=== PATIENT | male | born 2000 | race Hispanic/Latino ===

== ENCOUNTER 2020-07-03 13:26 | Inpatient (IN) | payer SELFPAY ==
[~2020-07-03] VITALS: Ht 182.9 cm; Wt 104.3 kg
--- NOTE | 2020-07-03 13:58 | Emergency Department Note ---
History of Present Illnes History of Present Illness Chief Complaint: Abdominal Complaints History of Present Illness This is a 20 year old male, with no significant past medical history, who presents for evaluation of right lower quadrant abdominal pain that started last night. Patient states that he went to bed last night with the RLQ abdominal pain, and he awakened with it again this morning. He describes the pain as sharp, stabbing, and does not radiate. The pain is worse with movement, including deep breathing. He is nauseated and vomited once last night, but he has had no vomiting today. Patient has not had anything to eat or drink today. Patient states that he had a "normal" bowel movement last night, and he has had no diarrhea. Patient states that he "felt warm," once last night, as if he had a fever, but he did not check his temperature. No known sick contacts or known exposure to Covid 19. Historian: Patient Arrival Mode: Car Maintenance Shop Clerk Required: No (18) Onset (how long ago): hour(s) (18) Location: RLQ Quality: sharp, stabbing Radiation: Reports non-radiation; Denies back, Denies neck, Denies flank Severity: moderate Duration (how long): hour(s) Timing of current episode: intermittent Progression: worsening Chronicity: new Context: Denies recent illness, Denies recent surgery, Denies trauma/injury Relieving factors: rest (sitting perfectly still helps to minimize the pain.) Exacerbating factors: movement Associated symptoms: Reports fever/chills (subjective), Reports nausea/vomiting (nausea, without vomiting;), Reports shortness of breath; Denies chest pain, Denies cough Treatments prior to arrival: none Past Medical/Family History Physician Review I have reviewed the patient's past medical and family history. Any updates have been documented here. Past Medical History Recent Fever: No Clinical Suspicion of Infectio: No New/Unexplained Change in Ment: No Past Medical History: None Other Surgery: right arm cyst Social History Smoking Cessation: Never Smoker Alcohol Use: None Any Illegal Drug Use: No TB Exposure/Symptoms: No Physically hurt or threatened: No Family History Family history of heart diseas: No Other Any Pre-Existing Lines (PICC,: No Is patient up to date on immun: No Review of Systems Review of Systems Constitutional: Reports chills, Reports fever (subjective;) EENTM: Reports no symptoms Cardiovascular: Denies chest pain, Denies palpitations Respiratory: Denies cough, Denies dyspnea Gastrointestinal: Reports abdominal pain, Reports nausea, Reports vomiting (x1 episode last evening; ); Denies constipation, Denies diarrhea Genitourinary: Reports no symptoms; Denies dysuria, Denies frequency Musculoskeletal: Denies back pain, Denies neck pain Integumentary: Denies change in color, Denies rash Neurological: Denies headache, Denies paresthesia Psychological: Reports no symptoms Endocrine: Reports no symptoms Hematological/Lymphatic: Reports no symptoms Review of other systems: All other systems negative Physical Exam Related Data Allergies: Coded Allergies: No Known Allergies (Unverified , 07/03/20) Vital signs reviewed: Yes Physical Exam CONSTITUTIONAL Constitutional: Present well-developed, Present well-nourished; Absent obese, Absent distressed, Absent ill appearing HENT HENT: Present normocephalic, Present atraumatic, Present oropharynx clear/moist, Present nose normal HENT L/R: Present left TM normal, Present right TM normal, Present left ext ear normal, Present right ext ear normal EYES Eyes: Reports PERRL, Reports conjunctivae normal NECK Neck: Present ROM normal; Absent cervical adenopathy PULMONARY Pulmonary: Present effort normal, Present breath sounds normal; Absent chest tenderness CARDIOVASCULAR Cardiovascular: Present regular rhythm, Present heart sounds normal, Present capillary refill normal, Present normal rate; Absent murmur GASTROINTESTINAL Abdominal: Present soft, Present tender (RLQ ttp, with mild guarding, no rebound; ), Present guarding; Absent distension, Absent rebound GENITOURINARY Genitourinary: Present exam deferred SKIN Skin: Present warm; Absent rash MUSCULOSKELETAL Musculoskeletal: Present ROM normal; Absent edema NEUROLOGICAL Neurological: Present alert, Present oriented x 3, Present no gross motor or sensory deficits PSYCHOLOGICAL Psychological: Present mood/affect normal, Present judgement normal Results Laboratory Laboratory CBC - WBC = 13.8, otherwise, normal; [place] -normal; Liver panel - nl, except for ALT = 108, TP = 8.2; UA - small blood, otherwise normal; Lab results reviewed: Yes Imaging Imaging results reviewed: Yes Impressions [place] [address] Patient Name: GUI MEJIA MR #: [id number] : 2000 Age/[facility]: 20[id number] Req #: [id number] Adm Physician: Ordered by: MICHAEL WALKER MD Report #: [id number] [facility]: [facility] Room/Bed: Procedure: [id number] HOPD/CT ABD/PEL WITH CONTRAST-HOPD Exam Date: Exam Time: REPORT STATUS: Signed EXAM: CT Abdomen WITHOUT contrast INDICATION: Right lower quadrant abdominal pain. COMPARISON: None. TECHNIQUE: Abdomen was scanned utilizing a multidetector helical scanner from the lung base to the iliac crest without administration of IV contrast. Absence of intravenous contrast decreases sensitivity for detection of focal lesions and vascular pathology. Coronal and sagittal reformations were obtained. Routine protocol was performed. IV CONTRAST: None ORAL CONTRAST: Water COMPLICATIONS: None RADIATION DOSE: Total DLP: 905 mGy*cm Estimated effective dose: (DLP x 0.015 x size factor) mSv CTDIvol has been reviewed. It is below the limits set by the Radiation Protocol Committee (RPC). Dose modulation, iterative reconstruction, and/or weight based adjustment of the mA/kV was utilized to reduce the radiation dose to as low as reasonably achievable. FINDINGS: LINES and TUBES: None. LOWER THORAX: Unremarkable HEPATOBILIARY: The liver is diffuse hypodense compared to the spleen, consistent with diffuse hepatic diffuse hepatic steatosis. No focal hepatic lesions. No biliary ductal dilation. GALLBLADDER: No radio-opaque stones or sludge. No wall thickening. SPLEEN: No splenomegaly. PANCREAS: No focal masses or ductal dilatation. ADRENALS: No adrenal nodules KIDNEYS/URETERS: No hydronephrosis. No cystic or solid mass lesions. No stones. GI TRACT: No abnormal distention, wall thickening, or evidence of bowel obstruction. The appendix is dilated measuring approximately 1.2 cm with mild peripheral fat stranding LYMPH NODES: No lymphadenopathy. VESSELS: Unremarkable. PERITONEUM / RETROPERITONEUM: No free air or fluid. BONES: Unremarkable. SOFT TISSUES: Unremarkable. IMPRESSION: 1. Dilated appendix measuring approximately 1.2 cm with mild peripheral fat stranding, findings compatible with acute uncomplicated appendicitis. 2. Hepatic steatosis. Signed by: Chloe Cuellar MD on 07/03/2020 3:57 PM Dictated By: CHLOE CUELLAR MD 56 Transcribed By: INES on 07/03/201556 COPY TO: MICHAEL WALKER MD~ Assessment & Plan Medical Decision Making [facility] 16:10 - CT results back, and revealed findings consistent with acute appendicitis. Informed the patient and mom of the findings, and that he will need to be admitted to the hospital for surgical management of the appendicitis. We'll consult surgery for admission. - Patient states that he is currently comfortable, pain-free, and without nausea. 16:30- case discussed with Dr. Antonio, surgery vocational rehabilitation specialist, who agreed to admit patient to [facility]. He requested that patient be placed on IV abx, and to make him NPO after midnight. He plans to take him to the OR in the morning. COVID testing has been ordered. Pt and mother, updated. Assessment & Plan Final Impression: (1) RLQ abdominal pain (2) Acute appendicitis (3) Leukocytosis (4) Nausea Depart Disposition: ADMITTED MICHAEL WALKER MD Jul 03, 2020 13:58
--- OUTSIDE RECORDS SUMMARY | 2020-07-03 15:08 | XMS REPORT | Clinical Summary ---
Author Author [facility] Address Unknown Phone Unavailable Care Team Providers Care Interceptor Operator Name Role Phone Luis Holcomb PCP Allergies No Known Allergies Medications No known medications Active Problems Not on file Social History Date Tobacco Use Types Packs/Day Years Used Never Smoker Smokeless Tobacco: Never Used Drinks/Week oz/Week Comments Alcohol Use No Sex Assigned at Date Recorded Not on file Last Filed Vital Signs Not on file Plan of Treatment Not on file Results Not on fileafter 07/03/2019 Insurance Type Payer Benefit Subscriber ID Effective Phone Address Plan / Dates Group Medicaid Contracted MEDICAID - MEDICAID [place] MEDICAID [id number] 18-P CARE [facility] [place] (Home) [place] [address]
--- OUTSIDE RECORDS SUMMARY | 2020-07-03 15:08 | XMS REPORT | Continuity of Care Document ---
Author Author [facility] t Organization [facility] Address [address] [place] [address] Phone Unavailable Care Team Providers Care Asset Availability Leader Name Role Phone ZhangLuis stephen PCP Israel SPARKS Attheidi Unavailable Israel SPARKS Admheidi Unavailable Problems This patient has no known problems. Allergies, Adverse Reactions, Alerts This patient has no known allergies or adverse reactions. Social History Social Habit Start Date Stop Date Quantity Comments Source Sex Assigned At [facility] Tobacco use and exposure 2018-01-27 00:00:00 2018-01-27 00:00:00 Neve r used [facility] Alcohol intake 2018-01-27 00:00:00 2018-01-27 00:00:00 Current non-drinker of alcohol (finding) [facility] Smoking Status Start Date Stop Date Source Never smoker [facility] Medications This patient has no known medications. Procedures This patient has no known procedures. Results Test Description Test Time Test Comments Results Result Comments Source TISSUE EXAM 2018-01-29 09:04:00 Surgical Pat hology Report Case: [id number] Authorizing Provider: Aris Sparks MD Collected: 01/27/2018 0858 Ord ering Location: [facility] PERI[facility]AT[facility] Received: 01/27/2018 1131 SERVICES Pathologist: Cally Torres MD Specimen: Ganglion Cyst, RIGHT WRIST SOFT TISSUE, RIGHT WRIST, EXCISION- COMPATIBLE WITH GANGLION CYST Signing Pathologist Direct Phone Line: [phone] signed by Cally Torres MD on 01/29/2018 at 9:04 AMThe sections show fibrovascular and adipose tissue. A cyst wall without lining is also appreciated. The cyst that shows bluish watery material. Findings are compatible with ganglion cyst.[id number] wrist ganglion cystRight wrist ganglion cystReceived in formalin labeled "ganglion cyst", description "right wrist" is a 2.0 x 1.1 x 0.6 cm, andrade-white, irregular, rubbery soft tissue mass. Sectioning reveals a multiloculated cyst containing clear gelatinous material. The specimen is entirely submitted in cassette A1. DB/ewPerformed.
--- NOTE | 2020-07-03 16:01 | Diagnostic Imaging Report ---
EXAM: CT Abdomen WITHOUT contrast INDICATION: Right lower quadrant abdominal pain. COMPARISON: None. TECHNIQUE: Abdomen was scanned utilizing a multidetector helical scanner from the lung base to the iliac crest without administration of IV contrast. Absence of intravenous contrast decreases sensitivity for detection of focal lesions and vascular pathology. Coronal and sagittal reformations were obtained. Routine protocol was performed. IV CONTRAST: None ORAL CONTRAST: Water COMPLICATIONS: None RADIATION DOSE: Total DLP: 905 mGy*cm Estimated effective dose: (DLP x 0.015 x size factor) mSv CTDIvol has been reviewed. It is below the limits set by the Radiation Protocol Committee (RPC). Dose modulation, iterative reconstruction, and/or weight based adjustment of the mA/kV was utilized to reduce the radiation dose to as low as reasonably achievable. FINDINGS: LINES and TUBES: None. LOWER THORAX: Unremarkable HEPATOBILIARY: The liver is diffuse hypodense compared to the spleen, consistent with diffuse hepatic diffuse hepatic steatosis. No focal hepatic lesions. No biliary ductal dilation. GALLBLADDER: No radio-opaque stones or sludge. No wall thickening. SPLEEN: No splenomegaly. PANCREAS: No focal masses or ductal dilatation. ADRENALS: No adrenal nodules KIDNEYS/URETERS: No hydronephrosis. No cystic or solid mass lesions. No stones. GI TRACT: No abnormal distention, wall thickening, or evidence of bowel obstruction. The appendix is dilated measuring approximately 1.2 cm with mild peripheral fat stranding LYMPH NODES: No lymphadenopathy. VESSELS: Unremarkable. PERITONEUM / RETROPERITONEUM: No free air or fluid. BONES: Unremarkable. SOFT TISSUES: Unremarkable. IMPRESSION: 1. Dilated appendix measuring approximately 1.2 cm with mild peripheral fat stranding, findings compatible with acute uncomplicated appendicitis. 2. Hepatic steatosis. Signed by: Julienne Mclean MD on 07/03/2020 3:57 PM
--- NOTE | 2020-07-03 16:34 | NUR ---
[facility] called for transport
[2020-07-03] MEDS ORDERED: ONDANSETRON HCL INJ 2MG/ML 2ML 2 MG/ML VIAL IV PRN (16:45)
[2020-07-03] MEDS ORDERED: MORPHINE SULFATE 2 MG/ML SYR 1ML IV PRN (16:45)
--- OUTSIDE RECORDS SUMMARY | 2020-07-03 16:51 | XMS REPORT | Continuity of Care Document ---
Author Author [facility] t Organization [facility] Address [address] [place] [address] Phone Unavailable Care Team Providers Care Slot Operations Manager Name Role Phone ZhangFuad stephenael PCP Arminda WALKER Unavailable Israel SPARKS Attphysarika Unavailable Israel SPARKS Admheidi Unavailable Problems This patient has no known problems. Allergies, Adverse Reactions, Alerts This patient has no known allergies or adverse reactions. Social History Social Habit Start Date Stop Date Quantity Comments Source Sex Assigned At [facility] Tobacco use and exposure 2018-01-27 00:00:00 2018-01-27 00:00:00 Neve r used [facility] Alcohol intake 2018-01-27 00:00:00 2018-01-27 00:00:00 Current non-drinker of alcohol (finding) [facility] Smoking Status Start Date Stop Date Source Never smoker [facility] Medications This patient has no known medications. Procedures This patient has no known procedures. Results Test Description Test Time Test Comments Results Result Comments Source CT ABD/PEL WITH CONTRAST-HOPD 2020-07-03 15:53:00 [facility] [address] [place] [address] Patient Name: GUI NEVES MR #: [id number] : 2000 Age/Sex: 20/M Req #: [id number] Adm Physician: Ordered by: MICHAEL WALKER MD Report #: [id number] Location: [facility] Room/Bed: Procedure: [id number] HOPD/CT ABD/PEL WITH CONTRAST-HOPD Exam Date: Exam Time: REPORT STATUS: Signed EXAM: CT Abdomen WITHOUT contrast INDICATION: Right lower quadrant abdominal pain. COMPARISON: None. TECHNIQUE: Abdomen was scanned utilizing a multidetector helical scanner from the lung base to the iliac crest without administration of IV contrast. Absence of intravenous contrast decreases sensitivity for detection of focal lesions and vascular pathology. Coronal and sagittal reformations were obtained. Routine protocol was performed. IV CONTRAST: None ORAL CONTRAST: Water COMPLICATIONS: None RADIATION DOSE: Total DLP: 905 mGy*cm Estimated effective dose: (DLP x 0.015 x size factor) mSv CTDIvol has been reviewed. It is below the limits set by the Radiation Protocol Committee (RPC). Dose modulation, iterative reconstruction, and/or weight based adjustment of the mA/kV was utilized to reduce the radiation dose to as low as reasonably achievable. FINDINGS: LINES and TUBES: None. LOWER THORAX: Unremarkable HEPATOBILIARY: The liver is diffuse hypodense compared to the spleen, consistent with diffuse hepatic diffuse hepatic steatosis. No focal hepatic lesions. No biliary ductal dilation. GALLBLADDER: No radio-opaque stones or sludge. No wall thicken ing. SPLEEN: No splenomegaly. PANCREAS: No focal masses or ductal dilatation. ADRENALS: No adrenal nodules KIDNEYS/URETERS: No hydronephrosis. No cystic or solid mass lesions. No stones. GI TRACT: No abnormal distention, wall thickening, or evidence of bowel obstruction. The appendix is dilated measuring approximately 1.2 cm with mild peripheral fat stranding LYMPH NODES: No lymphadenopathy. VESSELS: Unremarkable. PERITONEUM / RETROPERITONEUM: No free air or fluid. BONES: Unremarkable. SOFT TISSUES: Unremarkable. IMPRESSION: 1. Dilated appendix measuring approximately 1.2 cm with mild peripheral fat stranding, findings compatible with acute uncomplicated appendicitis. 2. Hepatic steatosis. Signed by: Chloe Cuellar MD on 07/03/2020 3:57 PM Dictated By: CHLOE CUELLAR MD 56 Transcribed By: INES on 07/03/201556 COPY TO: MICHAEL WALKER MD TISSUE EXAM 2018-01-29 09:04:00 Surgical Pat hology Report Case: [id number] Authorizing Provider: Aris Sparks MD Collected: 01/27/2018 0858 Ord ering Location: [facility] PERIOPERATIVE Received: 01/27/2018 1131 SERVICES Pathologist: Cally Torres MD Specimen: Ganglion Cyst, RIGHT WRIST SOFT TISSUE, RIGHT WRIST, EXCISION- COMPATIBLE WITH GANGLION CYST Signing Pathologist Direct Phone Line: [phone] signed by Cally Torres MD on 01/29/2018 at 9:04 AMThe sections show fibrovascular and adipose tissue. A cyst wall without lining is also appreciated. The cyst that shows bluish watery material. Findings are compatible with ganglion cyst.[id number] wrist ganglion cystRight wrist ganglion cystReceived in formalin labeled "ganglion cyst", description "right wrist" is a 2.0 x 1.1 x 0.6 cm, andrade-white, irregular, rubbery soft tissue mass. Sectioning reveals a multiloculated cyst containing clear gelatinous material. The specimen is entirely submitted in cassette A1. DB/ewPerformed.
--- OUTSIDE RECORDS SUMMARY | 2020-07-03 16:51 | XMS REPORT | Clinical Summary ---
Author Author [facility] Address Unknown Phone Unavailable Care Team Providers Care Product Design Specialist Name Role Phone Luis Holcomb PCP Allergies [...] Medicaid Contracted MEDICAID - MEDICAID [place] MEDICAID [id number] 19 18-P CARE [facility] [address] (Home) [place] [address]
--- NOTE | 2020-07-03 17:02 | NUR ---
REPORT TO EMS.
--- NOTE | 2020-07-03 17:20 | NUR ---
PT ARRIVED TO ROOM 213. PT AWAKE, ALERT, ORIENTED, AMBULATORY, NO S/S OF DISTRESS. NO COMPLAINTS AT THIS TIME.
[2020-07-03 17:37] VITALS: BP 143/78
[2020-07-03 18:18] VITALS: BP 143/78
[2020-07-03 18:22] VITALS: BP 143/78
[2020-07-03] MEDS: SODIUM CHLORIDE 0.9% 1000ML 1,000 ML IV SCH (18:35)
[2020-07-03 20:00] VITALS: BP 142/78
[2020-07-03 21:00] VITALS: BP 142/78
[2020-07-03] MEDS ORDERED: PIPER-TAZ 3.375 GM / NS 50ML IV SCH (22:00)
[2020-07-03] MEDS: PIPER-TAZ 3.375 GM 50 ML IV SCH (22:05)
[2020-07-04] VITALS (9 sets, daily range): BP systolic 120–149; BP diastolic 56–86
--- NOTE | 2020-07-04 | NUR ---
All drinks and food removed from bedside, education provided to remain nothing by mouth for possible procedure 07/04/20. Verbalized understanding.
[2020-07-04] MEDS: SODIUM CHLORIDE 0.9% 1000ML 1,000 ML IV SCH ×4 (00:49→22:33)
[2020-07-04] MEDS: PIPER-TAZ 3.375 GM 50 ML IV SCH ×3 (05:13→21:43)
--- NOTE | 2020-07-04 06:20 | NUR ---
CHG shower taken, linen changed. Tolerated well.
--- NOTE | 2020-07-04 06:49 | NUR ---
Bedside report and walking rounds completed with oncoming nurse. Patient in bed with call light within reach. No issues or concerns noted.
--- NOTE | 2020-07-04 06:50 | NUR ---
SBAR BEDSIDE REPORT RECEIVED FROM PM SHIFT RN. PATIENT FOUND LYING IN BED IN NO ACUTE DISTRESS. PATIENT AAOX4 AND ABLE TO VOICE NEEDS. PT DENIES ANY FURTHER NEEDS. PATIENT WAS EDUCATED ON FALL RISK PRECAUTIONS AND VERBALIZED UNDERSTANDING. CALL LIGHT AND BELONGINGS PLACED NEARBY. WILL CONTINUE TO MONITOR.
--- NOTE | 2020-07-04 07:23 | Pre Op History & Physical ---
CHIEF COMPLAINT: Abdominal pain. HISTORY OF PRESENT ILLNESS: The patient is a 20-year-old male, who presents with complaints of abdominal pain, started two nights ago. He has associated nausea and vomiting. The pain persisted. He went to emergency room where he was evaluated CT of the abdomen and pelvis, which revealed findings suggestive of acute appendicitis. The patient has not had similar symptoms in the past. He has not had any fever. PAST MEDICAL HISTORY: Unremarkable. Denies chronic medical problems. PAST SURGICAL HISTORY: Only previous surgery is incision of a cyst from his wrist. ALLERGIES: THERE ARE NO KNOWN ALLERGIES. There were no current medications. FAMILY HISTORY: Noncontributory. SOCIAL HISTORY: The patient does not smoke cigarettes or drink alcohol. REVIEW OF SYSTEMS: As stated above, otherwise was negative. PHYSICAL EXAMINATION: GENERAL: The patient is awake and alert, in no distress. VITAL SIGNS: Normal. He is afebrile. HEENT: Sclerae is nonicteric. NECK: Supple. No masses. LUNGS: Equal breath sounds are clear bilaterally. CARDIAC: Regular rate and rhythm with no murmur. ABDOMEN: Tender in the right lower quadrant and signs of peritonitis localized to right lower quadrant. There is no mass. There was no organomegaly. EXTREMITIES: Warm. There is no edema. NEUROLOGIC: Grossly intact. LABORATORY TESTS: Unremarkable. ASSESSMENT AND PLAN: A 20-year-old male with acute appendicitis. He will benefit from appendectomy, which I planned to schedule for today. Procedure was explained to the patient including risks, benefits, and alternatives. He understands. He has had the opportunity to ask questions. He is aware of the possible need for open surgery. MD FAHAD Mota/JOSE DE JESUS /[id number]
[2020-07-04 11:18] LABS: BASOPHILS # (AUTO) 0.1 (0.0-0.1); BASOPHILS % 0.6 % (0.0-1.0); EOSINOPHILS # (AUTO) 0.2 (0.0-0.4); EOSINOPHILS % 2.4 % (0.0-6.0); HEMATOCRIT 41.4 % (38.2-49.6); HEMOGLOBIN 13.5 g/dL (14.0-18.0); LYMPHOCYTES # (AUTO) 2.9 (1.0-3.2); LYMPHOCYTES % 37.5 % (18.0-39.1); MEAN CORPUSCULAR HEMOGLOBIN 27.3 pg (28-32); MEAN CORPUSCULAR HGB CONC 32.6 g/dL (31-35); MEAN CORPUSCULAR VOLUME 83.6 fL (81-99); MONOCYTES # (AUTO) 0.7 (0.2-0.8); MONOCYTES % 9.1 % (4.4-11.3); NEUTROPHILS # (AUTO) 3.9 (2.1-6.9); NEUTROPHILS % 49.9 % (38.7-80.0); PLATELET COUNT 246 x10e3/uL (140-360); RED BLOOD COUNT 4.95 x10e6/uL (4.3-5.7); RED CELL DISTRIBUTION WIDTH 13.3 % (11.7-14.4)
[2020-07-04 11:37] LABS: ALANINE AMINOTRANSFERASE 105 IU/L (0-55); ALBUMIN 3.9 g/dL (3.5-5.0); ALBUMIN/GLOBULIN RATIO 1.2 (0.8-2.0); ALKALINE PHOSPHATASE 67 IU/L (40-150); BLOOD UREA NITROGEN 10 mg/dL (7-26); BUN/CREATININE RATIO 11 (6-25); CALCIUM 8.7 mg/dL (8.4-10.2); CARBON DIOXIDE 25 mmol/L (22-29); CHLORIDE 107 mmol/L (98-107); EST GLOMERULAR FILTRATION RATE > 60 ML/MIN (60-); GLUCOSE 98 mg/dL (74-118); SODIUM 142 mmol/L (136-145)
[2020-07-04] MEDS ORDERED: BUPIVACAINE HCL 0.5% INJ 30 ML VIAL INJ ONE (11:44)
[2020-07-04] MEDS ORDERED: ONDANSETRON HCL INJ 2MG/ML 2ML 2 MG/ML VIAL ONE (12:09)
[2020-07-04] MEDS ORDERED: ROCURONIUM BROMIDE 10 MG/ML 5ML VIAL IV ONE (12:09)
[2020-07-04] MEDS ORDERED: DEXAMETHASONE SOD PHOS INJ 4 MG/ML VIAL ONE (12:09)
[2020-07-04] MEDS ORDERED: SEVOFLURANE INHAL SOLN 250 ML PEN BTL ONE (12:09)
[2020-07-04] MEDS ORDERED: KETOROLAC TROMETHAMINE 30 MG/ML VIAL ONE (12:09)
[2020-07-04] MEDS ORDERED: PROPOFOL IV EMULSION 10 MG/ML 20 ML VIAL ONE (12:09)
[2020-07-04] MEDS ORDERED: LIDOCAINE HCL 2% LOCAL INJ 5 ML SDV VIAL INJ ONE (12:09)
[2020-07-04] MEDS ORDERED: NEOSTIGMINE 1 MG/ML 10ML VIAL ONE (12:09)
[2020-07-04] MEDS ORDERED: GLYCOPYRROLATE INJ 0.2 MG/ML VIAL ONE (12:09)
[2020-07-04] MEDS ORDERED: ACETAMINOPHEN 325 MG TAB PO PRN (12:30)
[2020-07-04] MEDS ORDERED: ONDANSETRON HCL INJ 2MG/ML 2ML 2 MG/ML VIAL IV PRN (12:30)
--- NOTE | 2020-07-04 12:30 | NUR ---
PATIENT OFF THE FLOOR FOR SURGERY
--- NOTE | 2020-07-04 13:30 | NUR ---
PATIENT BACK TO THE FLOOR FROM SURGERY
--- NOTE | 2020-07-04 13:39 | Operative Report ---
DATE OF PROCEDURE: 07/04/2020 SURGEON: Aris Antonio MD PREOPERATIVE DIAGNOSIS: Acute appendicitis. POSTOPERATIVE DIAGNOSIS: Acute appendicitis. PROCEDURES: Diagnostic laparoscopy, laparoscopic appendectomy. BALLOON ARTIST: None. ANESTHESIA: General endotracheal. INDICATIONS AND FINDINGS: The patient is a 20-year-old male who presented with complaints of abdominal pain localized in the right lower quadrant. At surgery, the patient was found to have acutely inflamed appendix. TECHNIQUE: After adequate general endotracheal anesthesia, the patient in supine position, the abdomen was prepped and draped in a sterile fashion with ChloraPrep solution. Skin in the umbilicus was infiltrated with 0.5% Marcaine. Incision was made in the umbilicus. Abdominal wall was elevated and Veress needle was introduced. Pneumoperitoneum was then created. A 10 mm trocar and cannula were then passed through the umbilical wound. Laparoscopic camera was introduced. Initial laparoscopy revealed acutely inflamed appendix. A 12 mm trocar and cannulas were placed suprapubically and a 5 mm trocar and cannula were placed in the right upper quadrant. These were placed under direct vision. The cecum was elevated. There were some peritoneal attachments in the appendix which were divided with LigaSure device. The mesoappendix was also divided with LigaSure device until the appendix was free all the way down to its base at the cecum. The base of the appendix was then divided close to the cecum with an Endo-SHAYLEE stapler freeing the appendix completely. Appendix was then placed into an Endopouch and brought out through the suprapubic cannula. Care was taken to not touch the abdominal wall. The appendectomy was inspected for hemostasis which was seen to be adequate. It was irrigated with saline. All fluid aspirated and inspected for hemostasis which was seen to be adequate. Instruments and cannulas were then removed. Pneumoperitoneum was evacuated. Wounds were then closed. Fascia in the umbilical and suprapubic wound closed with 0 Vicryl. Skin to all wounds closed with isadora. Sterile dressings applied to each wound. The patient tolerated the procedure well. Estimated blood loss was 5 mL. There were no complications. All counts were correct and the patient was taken to the recovery room in satisfactory condition. MD FAHAD Mota/MODL /[id number]
[2020-07-04] MEDS ORDERED: FENTANYL CITRATE/PF 100MCG/2 ML INJ ONE (15:03)
[2020-07-04] MEDS ORDERED: MIDAZOLAM HCL 2 MG/2 ML VIAL ONE (15:03)
[2020-07-04] MEDS: HYDROCODONE/APAP 5MG-325MG TAB PO PRN (18:22)
[2020-07-05] VITALS: BP 129/64
[2020-07-05] MEDS: HYDROCODONE/APAP 5MG-325MG TAB PO PRN ×2 (00:23→05:15)
[2020-07-05 04:00] VITALS: BP 139/66
[2020-07-05] MEDS: PIPER-TAZ 3.375 GM 50 ML IV SCH (05:15)
[2020-07-05] MEDS: SODIUM CHLORIDE 0.9% 1000ML 1,000 ML IV SCH (07:56)
[2020-07-05 08:48] VITALS: BP 117/61
[2020-07-05 08:55] VITALS: BP 117/61
--- NOTE | 2020-07-05 10:28 | NUR ---
Patient received discharge order from Dr. Antonio. Patient was given discharge instructions including follow up, education, and prescription. Patient verbalized understanding. Patient IV removed at 1000 and covered with a C/D/I dressing. Patient had no other questions or complaints. Patient refused wheelchair. Patient walked to car at 1020.
== END 2020-07-05 10:20 | disposition home or self-care (01) | DRG 343 ==
LOC: FSED 13:56 → ERHOLD 16:41 → MED/SURG2 17:17 → OBSVTOIN 07-05 08:04
PROVIDERS: ADMIT Surgery; ATTEND Surgery
PROC: 0DTJ4ZZ Resection of Appendix, Percutaneous Endoscopic Approach (ICD-10-PCS; principal; 2020-07-05)
DX: K35.80 Unspecified acute appendicitis (principal); Z11.59 Encounter for screening for other viral diseases
CPT/HCPCS: 36415; 74177; 80048; 80053; 81003; 85025; 88304; 96361; 99284; G0378; J1100; J1885; J2001; J2250; J2270; J2405; J2543; J2710; J3010; J7030